=== PATIENT | male | born 1940 | race Caucasian/White ===

== ENCOUNTER 2017-03-03 12:29 | Emergency (ER) | payer OTHER ==
[~2017-03-03] VITALS: Ht 177.8 cm; Wt 91.0 kg
[2017-03-03] MEDS ORDERED: LIDOCAINE HCL 1% 20ML VIAL (Pyxis) INJ MC ONE (13:00)
[2017-03-03] MEDS ORDERED: BACITRACIN ZINC OINT UDPKT TOP ONE (13:00)
[2017-03-03] MEDS ORDERED: CEFAZOLIN SODIUM 1000MG/VIAL IM ONE (13:00)
[2017-03-03] MEDS ORDERED: TETANUS, DIPHTHERIA, PERTUSSIS VAC/PF 0.5ML (>7YR OLD) IM ONE (13:00)
[2017-03-03] MEDS ORDERED: STERILE WATER FOR INJECTION 10ML VIAL ONE (13:55)
[2017-03-03] MEDS ORDERED: IBUPROFEN 600MG TABLET PO ONE (14:00)
[2017-03-03 14:59] VITALS: BP 193/83
== END 2017-03-03 15:05 | disposition home or self-care (01) ==
LOC: ER 12:30
DX: S51.812A Laceration without foreign body of left forearm, initial encounter (principal); I25.10 Atherosclerotic heart disease of native coronary artery without angina pectoris; E11.9 Type 2 diabetes mellitus without complications; I10 Essential (primary) hypertension; Z98.890 Other specified postprocedural states; W45.8XXA Other foreign body or object entering through skin, initial encounter; Y93.89 Activity, other specified; Y92.89 Other specified places as the place of occurrence of the external cause; Y99.8 Other external cause status
CPT/HCPCS: 12002; 90471; 90715; 96372; 99284; A4216; J0690; J3490; X7700; Z7610

== ENCOUNTER 2017-03-05 11:44 | Emergency (ER) | payer MEDICARE, OTHER ==
[~2017-03-05] VITALS: Ht 177.8 cm; Wt 91.0 kg
[2017-03-05 11:57] VITALS: BP 161/74
== END 2017-03-05 16:32 | disposition left against medical advice (07) ==
LOC: ER 11:45
DX: Z53.21 Procedure and treatment not carried out due to patient leaving prior to being seen by health care provider (principal)

== ENCOUNTER 2017-03-15 07:35 | Emergency (ER) | payer OTHER ==
[~2017-03-15] VITALS: Ht 177.8 cm; Wt 90.0 kg
[2017-03-15 07:46] VITALS: BP 177/66
== END 2017-03-15 08:25 | disposition home or self-care (01) ==
LOC: ER 08:01
DX: Z48.02 Encounter for removal of sutures (principal)
CPT/HCPCS: 99281